=== PATIENT | female | born 1960 | race Caucasian/White ===

== ENCOUNTER 2016-12-12 20:42 | Emergency (ER) | payer MEDICAID ==
--- NOTE | 2016-12-12 21:05 | EDPHY ---
H & P Source: Patient, Police Exam Limitations: Clinical condition - Medical/Surgical History Hx Asthma: No Hx Chronic Respiratory Disease: No Hx Diabetes: No Hx Cardiac Disease: No Hx Renal Disease: No Hx Cirrhosis: No Hx Alcoholism: No Hx HIV/AIDS: No Hx Splenectomy or Spleen Trauma: No Other PMH: DENIES - Family History Significant Family History: No pertinent family hx - Social History Smoking Status: Current every day smoker Alcohol Use: Sober Drug Use: None Time Seen by Provider: 12/12/16 20:48 HPI/ROS: CHIEF COMPLAINT: Suicidal ideation HISTORY OF PRESENT ILLNESS: The patient is a 56-year-old female who denies having any significant past medical history who is brought in by [facility]'s department for suicidal ideations. She states that 1 of her sons tried to commit suicide by eating rat poison a few days ago. He did this because the other son had been threatening to commit suicide. The other son is a meth addict. She states that today she sent out several messages stating that she was going to kill herself and that it was going to look like her son had killed her. She tells me that she did this to manipulate her son's out of killing themselves. found her sitting by a saleh on a stump stating that she wanted to sit there until she . She denies any attempt at self-harm. 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 She denies any recent drug or alcohol use. She tells me that she has not slept in 3 days because of stress. REVIEW OF SYSTEMS: Constitutional: denies: chills, fever, recent illness, recent injury EENTM: denies: blurred vision, double vision, nose congestion Respiratory: denies: cough, shortness of breath Cardiac: denies: chest pain, irregular heart rate, lightheadedness, palpitations Gastrointestinal/Abdominal: denies: abdominal pain, diarrhea, nausea, vomiting, blood streaked stools Genitourinary: denies: dysuria, frequency, hematuria, pain Musculoskeletal: denies: joint pain, muscle pain Skin: denies: lesions, rash, jaundice, bruising Neurological: denies: headache, numbness, paresthesia, tingling, dizziness, weakness Hematologic/Lymphatic: denies: blood clots, easy bleeding, easy bruising Immunologic/allergic: denies: HIV/AIDS, transplant EXAM: GENERAL: Well-appearing, well-nourished and in no acute distress. HEAD: Atraumatic, normocephalic. EYES: Pupils equal round and reactive to light, extraocular movements intact, sclera anicteric, conjunctiva are normal. ENT: TMs normal, nares patent, oropharynx clear without exudates. Moist mucous membranes. NECK: Normal range of motion, supple without lymphadenopathy or JVD. LUNGS: Breath sounds clear to auscultation bilaterally and equal. No wheezes rales or rhonchi. HEART: Regular rate and rhythm without murmurs, rubs or gallops. ABDOMEN: Soft, nontender, normoactive bowel sounds. No guarding, no rebound. No masses appreciated. BACK: No CVA tenderness, no spinal tenderness, step-offs or deformities EXTREMITIES: Normal range of motion, no pitting or edema. No clubbing or cyanosis. NEUROLOGICAL: Cranial nerves II through XII grossly intact. Normal speech, normal gait. 5/5 strength, normal movement in all extremities, normal sensation PSYCH: Able to answer questions appropriately. Slightly paranoid SKIN: Warm, dry, normal turgor, no visible rashes or lesions. (Osei Aguilar) Constitutional: Initial Vital Signs Temperature (C) 36.7 C 12/12/16 20:58 Heart Rate 72 12/12/16 20:58 Respiratory Rate 18 12/12/16 20:58 Blood Pressure 135/88 H 12/12/16 20:58 O2 Sat (%) 98 12/12/16 20:58 O2 Delivery Mode Room Air Allergies/Adverse Reactions: acetaminophen [From Percocet] Allergy (Verified 08/13/15 16:26) oxycodone HCl [From Percocet] Allergy (Verified 08/13/15 16:26) Home Medications: Medication Instructions Recorded Clonazepam 12/12/16 Medical Decision Making ED Course/Re-evaluation: 0426AM Patient evaluated by Brent WALKER, patient had full mental health evaluation and consultation with the on-call psychiatry they feel this patient is not a threat to herself patient denies being suicidal they feel comfortable allowing her to go home. I did go and meet and evaluate her she has, cooperative she denies want hurt herself or anybody else. Contracts for safety she has follow-up plans in place. I will allow her to be discharged. She does understand if she has any further symptoms of feeling like she was to harm herself or anybody else should immediately return to the emergency room. ( Mario Olguin) 10:15 p.m. the patient is medically cleared. She is awaiting psychiatric evaluation. 11:00 p.m. care transferred to Dr. Mario Olguin. (Osei Aguilar) Differential Diagnosis: Partial list of the Differential diagnosis considered include but were not limited to; depression, anxiety, suicidality, substance abuse and although unlikely based on the history and physical exam, I also considered head injury, infection, assault. (Osei Aguilar) - Data Points Laboratory Results: Laboratory Results 12/12/16 21:24 12/12/16 21:24 Medications Given: Discontinued Medications Ibuprofen (Motrin) 600 mg PO EDNOW ONE Stop: 12/12/16 21:29 Last Admin: 12/12/16 21:48 Dose: 600 mg Departure - Departure Disposition: Home, Routine, Self-Care Clinical Impression: Suicidal ideation Condition: Good Instructions: Depression (ED) Additional Instructions: 1. Please return emergency room immediately if you have thoughts of hurting herself or anybody else. Referrals: Chinedu Garay MD [Primary Care Provider] - As per Instructions
[2016-12-12] MEDS ORDERED: IBUPROFEN 600 MG TAB PO ONE (21:28)
[2016-12-12 21:37] LABS: % IMMATURE GRANULYOCYTES 0.4 % (0.0-1.1); ABSOLUTE IMMATURE GRANULOCYTES 0.03 10^3/uL (0.00-0.10); ADD DIFF? NO; ADD MORPH? NO; ADD SCAN? NO; ATYPICAL LYMPHOCYTE FLAG 0 (0-99); FRAGMENT RBC FLAG 0 (0-99); HEMOGLOBIN 13.8 g/dL (12.6-16.3); LEFT SHIFT FLG 0 (0-99); LIPEMIA HEMOLYSIS FLAG 80 (0-99); MEAN CELL HEMOGLOBIN 29.1 pg (27.9-34.1); MEAN CELL HEMOGLOBIN CONCENTR. 32.9 g/dL (32.4-36.7); MEAN CELL VOLUME 88.6 fL (81.5-99.8); MEAN PLATELET VOLUME 10.1 fL (8.7-11.7); PLATELET CLUMPS FLAG 0 (0-99); PLATELET COUNT 333 10^3/uL (150-400); RED BLOOD CELL COUNT 4.74 10^6/uL (4.18-5.33); RED CELL DISTRIBUTION WIDTH 14.4 % (11.5-15.2)
[2016-12-12 21:50] LABS: ANION GAP 9 mEq/L (8-16); CALCIUM 9.2 mg/dL (8.5-10.4); CARBON DIOXIDE 21 mEq/l (22-31); CHLORIDE 112 mEq/L (97-110); CREATININE 0.7 mg/dL (0.6-1.0); ETHANOL SERUM < 10 mg/dL (0-10); GLOMERULAR FILTRATION RATE > 60; GLUCOSE 92 mg/dL (70-100); SODIUM 142 mEq/L (134-144)
[2016-12-13 01:16] VITALS: RESP 16
[2016-12-13 04:55] VITALS: BP 114/78; PULSE 74; TEMP 98.1; O2SAT 95
== END 2016-12-13 04:54 | disposition home or self-care (01) ==
DX: R45.851 Suicidal ideations (principal); F17.200 Nicotine dependence, unspecified, uncomplicated
CPT/HCPCS: 80305; G0480

== ENCOUNTER 2016-12-15 18:18 | Emergency (ER) | payer MEDICAID ==
[2016-12-15 18:25] VITALS: BP 150/122; PULSE 94; RESP 20; TEMP 98.6; O2SAT 97
--- NOTE | 2016-12-15 18:42 | EDPHY ---
H & P Stated Complaint: wants clonazepam refill Time Seen by Provider: 12/15/16 18:42 HPI/ROS: CHIEF COMPLAINT: Requesting a clonazepam refill HISTORY OF PRESENT ILLNESS: The patient presents to the ED requesting a clonazepam refill. She apparently is in between primary care providers. She has been dealing with a great deal of stress an exacerbation of her PTSD surrounding her son's addiction to methamphetamine. The patient was seen in the emergency department several days ago with situational depression and found not to meet criteria for 72 hour mental health hold. The patient denies suicidal or homicidal ideation currently. She has been under the care of a new therapist sahara Lanza who is in the process of making a referral to a psychiatrist. The patient denies any additional acute medical complaints. REVIEW OF SYSTEMS: A comprehensive 10 point review of systems is otherwise negative aside from elements mentioned in the history of present illness. Source: Patient - Personal History Current Tetanus/Diphtheria Vaccine: Yes Current Tetanus Diphtheria and Acellular Pertussis (TDAP): Yes Tetanus Vaccine Date: < 10 years - Medical/Surgical History Hx Asthma: No Hx Chronic Respiratory Disease: No Hx Diabetes: No Hx Cardiac Disease: No Hx Renal Disease: No Hx Cirrhosis: No Hx Alcoholism: No Hx HIV/AIDS: No Hx Splenectomy or Spleen Trauma: No Other PMH: PTSD - Social History Smoking Status: Current every day smoker - Physical Exam Exam: General Appearance: Alert, mildly anxious Eyes: Pupils equal and round no pallor or injection ENT, Mouth: Mucous membranes moist Respiratory: There are no retractions, lungs are clear to auscultation Cardiovascular: Regular rate and rhythm Gastrointestinal: Abdomen is soft and nontender, no masses, bowel sounds normal Neurological: A&O, normal motor function, normal sensory exam, normal cranial nerves Skin: Warm and dry, no rashes Musculoskeletal: Neck is supple nontender Extremities: symmetrical, full range of motion Psychiatric: Patient is oriented X 3, there is no agitation, denies suicidal or homicidal ideation Constitutional: Initial Vital Signs Temperature (C) 37 C 12/15/16 18:22 Heart Rate 94 12/15/16 18:22 Respiratory Rate 20 12/15/16 18:22 Blood Pressure 150/122 H 12/15/16 18:22 O2 Sat (%) 97 12/15/16 18:22 O2 Delivery Mode Room Air Allergies/Adverse Reactions: acetaminophen [From Percocet] Allergy (Verified 12/15/16 18:21) oxycodone HCl [From Percocet] Allergy (Verified 12/15/16 18:21) Home Medications: Medication Instructions Recorded Clonazepam 12/12/16 Medical Decision Making ED Course/Re-evaluation: The patient will be given a short refill of her clonazepam. She has been informed that either her prior primary care provider or new psychiatrist will need to refill this medication in that we will be unable to refill clonazepam from the emergency department in the future. The patient does contract for safety. She is given the outpatient resources from [facility]. Departure - Departure Disposition: Home, Routine, Self-Care Clinical Impression: PTSD (post-traumatic stress disorder) Condition: Good Instructions: Post Traumatic Stress Disorder (ED) Additional Instructions: 1. You have been given a short refill of clonazepam. We will be unable to refill this medication out of the emergency department in the future. I will need to be prescribed by her primary care provider or a psychiatrist. 2. Please follow-up with the mental health resources provided in the ED today. 3. [facility] does operate a 01/02 psychiatric crisis unit located at [address] [place] [address]. The telephone number for the 24 hour crisis center is [phone]. 4. Please return to the ED if you are feeling suicidal, having thoughts of harming yourself/others or should you feel unsafe or have worsening symptoms. Referrals: Chinedu Garay MD [Primary Care Provider] - As per Instructions
== END 2016-12-15 19:09 | disposition home or self-care (01) ==
DX: Z76.0 Encounter for issue of repeat prescription (principal); F43.10 Post-traumatic stress disorder, unspecified; F17.200 Nicotine dependence, unspecified, uncomplicated

== ENCOUNTER 2017-05-21 18:06 | Emergency (ER) | payer MEDICAID ==
[2017-05-21 18:15] VITALS: BP 156/106; PULSE 86; RESP 18; TEMP 98.4; O2SAT 98
--- NOTE | 2017-05-21 18:31 | EDPHY ---
H & P Stated Complaint: Out of clonazepam x 2 wks;wants tx for withdrawal Time Seen by Provider: 05/21/17 18:20 HPI/ROS: Chief complaint: Clonazepam refill History of present illness: This is a 57-year-old female who presents to the emergency department requesting a clonazepam refill. She states she has been on clonazepam for 10 years. Starting this summer she started to see multiple providers trying to manage her clonazepam and ultimately taper off of it. She states they fought amongst each other and ultimately she started to look for another provider but has not found one. She has been off clonazepam for the last 2 weeks. She has been trying to tolerate the symptoms but she feels like she can no longer tolerate it and would like a refill. She denies other associated signs or symptoms, specifically when asked if she has thoughts of hurting or killing herself her other people she denies this. - Personal History Current Tetanus Diphtheria and Acellular Pertussis (TDAP): Yes Tetanus Vaccine Date: < 10 years - Medical/Surgical History Hx Asthma: No Hx Chronic Respiratory Disease: No Hx Diabetes: No Hx Cardiac Disease: No Hx Renal Disease: No Hx Cirrhosis: No Hx Alcoholism: No Hx HIV/AIDS: No Hx Splenectomy or Spleen Trauma: No Other PMH: PTSD. self diagnosed EpsteinBarre - Social History Smoking Status: Current every day smoker - Physical Exam Exam: General Appearance: Alert and no distress. Eyes: Pupils equal and round no injection. ENT: Oropharynx unremarkable. No hoarseness, no stridor, no drooling, no trismus. Respiratory: Chest is non tender, lungs are clear to auscultation. Cardiac: regular rate and rhythm Musculoskeletal: Neck is supple and non tender. Extremities have full range of motion and are non tender. Skin: No rashes or lesions. Neurological: Alert and oriented x4. Strength and sensation intact and symmetrical. Psychiatric. Patient is agitated. Constitutional: Initial Vital Signs Temperature (C) 36.9 C 05/21/17 18:11 Heart Rate 86 05/21/17 18:11 Respiratory Rate 18 05/21/17 18:11 Blood Pressure 156/106 H 05/21/17 18:11 O2 Sat (%) 98 05/21/17 18:11 Allergies/Adverse Reactions: acetaminophen [From Percocet] Allergy (Verified 05/21/17 18:10) oxycodone HCl [From Percocet] Allergy (Verified 05/21/17 18:10) Home Medications: Medication Instructions Recorded clonazePAM [klonoPIN (*)] 1 mg PO TID PRN #21 tab 12/15/16 Medical Decision Making ED Course/Re-evaluation: Patient seen under the supervision of my secondary supervising physician Dr. Terence Dietrich. Patient presents to the emergency department requesting a refill of clonazepam. She has been off of it for the last 2 weeks. She is anxious, but nontoxic and vital signs are stable. Review of her records show that she had a similar presentation in December. She was told at that time that no further refills will be provided through the emergency department. I have discussed this with her. She got extremely angry and left the room and walked out of the hospital. We were unable to have further discussions or provide discharge instructions. Departure - Departure Disposition: Against Medical Advice Clinical Impression: Benzodiazepine withdrawal Qualifiers: Complication of substance-induced condition: uncomplicated Qualified Code(s): F13.230 - Sedative, hypnotic or anxiolytic dependence with withdrawal, uncomplicated Condition: Good
== END 2017-05-21 18:39 | disposition left against medical advice (07) ==
DX: F13.230 Sedative, hypnotic or anxiolytic dependence with withdrawal, uncomplicated (principal); F17.200 Nicotine dependence, unspecified, uncomplicated

== ENCOUNTER 2017-07-28 16:52 | Emergency (ER) | payer MEDICAID ==
[2017-07-28] MEDS ORDERED: MAGNESIUM CITRATE 300 ML BOTTLE ONE (17:20)
[2017-07-28] MEDS ORDERED: NS 1,000 ML IV ONE ×2 (17:34→19:33)
[2017-07-28] MEDS ORDERED: MAGNESIUM CITRATE 300 ML BOTTLE PO ONE (17:53)
[2017-07-28] MEDS ORDERED: IOPAMIDOL (ISOVUE-300) 100 ML BTL ONE (18:08)
[2017-07-28 18:47] LABS: PLATELET COUNT 333 10^3/uL (150-400)
--- NOTE | 2017-07-28 19:13 | EDPHY ---
H & P Stated Complaint: constipation - Personal History Current Tetanus/Diphtheria Vaccine: Yes Current Tetanus Diphtheria and Acellular Pertussis (TDAP): Yes Tetanus Vaccine Date: < 10 years - Medical/Surgical History Hx Asthma: No Hx Chronic Respiratory Disease: No Hx Diabetes: No Hx Cardiac Disease: No Hx Renal Disease: No Hx Cirrhosis: No Hx Alcoholism: No Hx HIV/AIDS: No Hx Splenectomy or Spleen Trauma: No Other PMH: PTSD. self diagnosed EpsteinBarre. Chronic Constipation - Social History Smoking Status: Current every day smoker Time Seen by Provider: 07/28/17 17:05 HPI/ROS: Chief complaint: Severe constipation History of present illness: This is a 57-year-old female who presents to the emergency department with EMS for evaluation of severe constipation. Patient reports she has a long history of chronic constipation. It waxes and wanes. However over the last few days it has significantly worsened. She can feel a mass in her rectum but she cannot pass it. She describes severe pain. She denies other associated signs or symptoms including no abdominal pain, no nausea or vomiting, no fever, no urinary symptoms. Review of systems: A 10 point review of systems was obtained and other than described above was negative (Chago Garcia) - Physical Exam Exam: General Appearance: Alert, pacing the room, appears extremely uncomfortable Eyes: Pupils equal and round no pallor or injection. ENT, Mouth: Mucous membranes moist. Respiratory: There are no retractions, lungs are clear to auscultation. Cardiovascular: Regular rate and rhythm. Gastrointestinal: Abdomen is soft and non tender, no masses, bowel sounds normal. Neurological: Alert and oriented. Strength and sensation intact and symmetrical. Skin: Warm and dry, no rashes. Musculoskeletal: Neck is supple non tender. Extremities are symmetrical, full range of motion. Psychiatric: Patient is oriented X 3, there is no agitation. (Chago Garcia) Constitutional: Initial Vital Signs Temperature (C) 36.4 C 07/28/17 16:52 Respiratory Rate 26 H 07/28/17 16:52 Blood Pressure 125/97 H 07/28/17 16:52 O2 Sat (%) 104 H 07/28/17 16:52 O2 Delivery Mode Room Air Allergies/Adverse Reactions: acetaminophen [From Percocet] Allergy (Verified 05/21/17 18:10) oxycodone HCl [From Percocet] Allergy (Verified 05/21/17 18:10) Medical Decision Making - Diagnostics Imaging: I viewed and interpreted images myself ED Course/Re-evaluation: Patient is discussed with my secondary supervising physician Dr. Mi Figueroa. Patient presents to the emergency department for severe constipation. She did appear to be impacted. Initially rectal exam is performed, I felt significant impaction with the distal tip of my finger. Despite using lidocaine jelly patient is in extreme discomfort and cannot tolerate this. A plain x-ray is ordered just to confirm the diagnosis, there is concern for obstruction. I have discussed this with the patient. She is adamant that she is not obstructed just severely constipated and impacted as she has a history of this. She does not want further evaluation for possible obstruction. She just wants to be treated for impaction. Soapsuds enema are placed. Patient is given magnesium citrate. It has taken a number of hours but she has had large volume bowel movements and resolution of symptoms. Given severity constipation and potential for further workup blood studies obtained initially. Low bicarbonate noted. Recheck was performed accidentally on I-STAT, concerned for user error, needed to be performed on laboratory, recheck BMP in lab shows improving bicarb. She states she is feeling well. She would like to be discharged home. Home care is discussed. She is asked to follow up with her primary care doctor for recheck. Strict return precautions are given. The patient voiced understanding and agreement with plan. (Chago Garcia) Differential Diagnosis: Included but not limited to constipation, impaction, obstruction (Chago Garcia) Other Provider: The patient was evaluated and managed by the Physician Physical Design Engineer. I discussed the patient's presentation and course with the physician camp assistant and agree with the evaluation. My co-signature indicates that I have reviewed this chart and I agree with the findings and plan of care as documented. I am the secondary supervising physician. (Mi Figueroa) - Data Points Laboratory Results: Laboratory Results 07/28/17 18:34 07/28/17 21:35 Medications Given: Discontinued Medications Sodium Chloride (Ns) 1,000 mls @ 0 mls/hr IV EDNOW ONE; Wide Open PRN Reason: Protocol Stop: 07/28/17 17:35 Last Admin: 07/28/17 17:57 Dose: Not Given Sodium Chloride (Ns) 1,000 mls @ 0 mls/hr IV ONCE ONE PRN Reason: Wide Open Stop: 07/28/17 19:34 Last Admin: 07/28/17 19:34 Dose: 1,000 mls Magnesium Citrate (Magnesium Citrate) 300 ml PO ONCE ONE Stop: 07/28/17 17:54 Last Admin: 07/28/17 17:54 Dose: 150 ml Departure - Departure Disposition: Home, Routine, Self-Care Clinical Impression: Constipation Condition: Good Instructions: Constipation (ED) Additional Instructions: Follow-up with a primary care doctor in the next 1-2 days for recheck I recommend you start a fiber supplement such as Metamucil Use Colace stool softeners If symptoms worsen or new symptoms develop return to the emergency room for recheck Referrals: NONE *PRIMARY CARE P,. [Primary Care Provider] - As per Instructions [facility],. [Clinic] - As per Instructions
[2017-07-28 22:08] VITALS: O2SAT 97
[2017-07-28 22:10] VITALS: BP 121/77; PULSE 87; RESP 18; TEMP 98.6
== END 2017-07-28 22:09 | disposition home or self-care (01) ==
LOC: EDUNIT#
PROC: 3E0337Z Introduction of Electrolytic and Water Balance Substance into Peripheral Vein, Percutaneous Approach (ICD-10-PCS; principal; 2017-07-28)
DX: K59.00 Constipation, unspecified (principal); F17.200 Nicotine dependence, unspecified, uncomplicated
CPT/HCPCS: 82947-QW; Q9967

== ENCOUNTER 2018-06-06 23:32 | Emergency (ER) | payer MEDICAID ==
[2018-06-06 23:38] VITALS: BP 107/82
[2018-06-06] MEDS ORDERED: NS 1,000 ML IV ONE (23:47)
[2018-06-06 23:55] LABS: PLATELET COUNT 381 10^3/uL (150-400)
--- NOTE | 2018-06-07 00:29 | EDPHY ---
H & P Stated Complaint: DIARRHEA AND PAIN X 10 DAYS, THINK SHE HAS ECOLI Time Seen by Provider: 06/06/18 23:40 HPI/ROS: HPI The patient presents with diarrhea and intermittent abdominal pain which has been present for the last 10 days. Patient reports that she was on a diet and eating tarun lettuce for the 5 days preceding her symptoms. She developed watery diarrhea, having numerous episodes a day that has continued and now become somewhat bloody. She has intermittent abdominal pain which is in her lower abdomen and acute occurs in cycles. She had an episode tonight which brought her into the emergency department. She has not had a fever. She has not had any sick contacts. There is currently a [employer] warning for lettuce has there been some cases of E coli. REVIEW OF SYSTEMS 10 systems were reviewed and negative with the exception of the elements mentioned in the history of present illness. PMHx: Reported PTSD Soc Hx: Here with her son PHYSICAL General Appearance: Alert, no distress Eyes: Pupils equal and round no pallor or injection ENT, Mouth: Mucous membranes moist Respiratory: There are no retractions, lungs are clear to auscultation Cardiovascular: Regular rate and rhythm Gastrointestinal: Abdomen is soft and non-tender, no masses, bowel sounds normal Neurological: A&O, moves all extremities Skin: Warm and dry, no rashes Musculoskeletal: Neck is supple non tender Extremities: symmetrical, full range of motion Psychiatric: Patient is oriented X 3, there is no agitation Source: Patient Exam Limitations: No limitations - Personal History Current Tetanus/Diphtheria Vaccine: Yes Tetanus Vaccine Date: < 10 years - Medical/Surgical History Hx Asthma: No Hx Chronic Respiratory Disease: No Hx Diabetes: No Hx Cardiac Disease: No Hx Renal Disease: No Hx Cirrhosis: No Hx Alcoholism: No Hx HIV/AIDS: No Hx Splenectomy or Spleen Trauma: No Other PMH: PTSD. self diagnosed EpsteinBarre. Chronic Constipation. C-SECT X3 - Social History Smoking Status: Current every day smoker Constitutional: Initial Vital Signs Temperature (C) 36.4 C 06/06/18 23:35 Heart Rate 88 06/06/18 23:35 Respiratory Rate 24 H 06/06/18 23:35 Blood Pressure 107/82 H 06/06/18 23:35 O2 Sat (%) 95 06/06/18 23:35 O2 Delivery Mode Room Air Allergies/Adverse Reactions: acetaminophen [From Tylenol-Codeine #3] Allergy (Verified 06/06/18 23:34) codeine [From Tylenol-Codeine #3] Allergy (Verified 06/06/18 23:34) oxycodone [From Percocet] Allergy (Verified 06/06/18 23:34) propoxyphene [From Darvocet-N] Allergy (Verified 06/06/18 23:34) Home Medications: Medication Instructions Recorded NK [No Known Home Meds] 06/06/18 Medical Decision Making Differential Diagnosis: This is a 58-year-old female who presents with 10 days of watery diarrhea which became bloody associated with intermittent lower abdominal pain. On exam, vital signs are normal, she appears well hydrated. Her abdominal exam is benign. Differential diagnosis includes viral gastroenteritis, toxin mediated enterocolitis, bacterial colitis, diverticulitis. In the emergency department, patient received IV fluids and a dose of Toradol for her pain. Labs were checked and demonstrated mild leukocytosis, otherwise normal. The patient urinated on the floor of her room and then provided a small stool sample in an emesis basin which was brown without any bright red blood or dark stool present. She asked to be discharged. I had recommended a CT scan of her abdomen to evaluate for diverticulitis, however she refused. I have advised her to follow up with her primary care doctor. - Data Points Laboratory Results: Laboratory Results 06/06/18 23:45 06/06/18 23:45 06/06/18 06/06/18 23:45 23:45 WBC 12.96 10^3/uL H 10^3/uL (3.80-9.50) RBC 4.75 10^6/uL 10^6/uL (4.18-5.33) Hgb 13.9 g/dL g/dL (12.6-16.3) Hct 41.2 % % (38.0-47.0) MCV 86.7 fL fL (81.5-99.8) MCH 29.3 pg pg (27.9-34.1) MCHC 33.7 g/dL g/dL (32.4-36.7) RDW 13.2 % % (11.5-15.2) Plt Count 381 10^3/uL 10^3/uL (150-400) MPV 9.8 fL fL (8.7-11.7) Neut % (Auto) 73.7 % % (39.3-74.2) Lymph % (Auto) 17.0 % % (15.0-45.0) Creek % (Auto) 6.7 % % (4.5-13.0) Eos % (Auto) 1.7 % % (0.6-7.6) Baso % (Auto) 0.5 % % (0.3-1.7) Nucleat RBC Rel Count 0.0 % % (0.0-0.2) Absolute Neuts (auto) 9.55 10^3/uL H 10^3/uL (1.70-6.50) Absolute Lymphs (auto) 2.20 10^3/uL 10^3/uL (1.00-3.00) Absolute Monos (auto) 0.87 10^3/uL H 10^3/uL (0.30-0.80) Absolute Eos (auto) 0.22 10^3/uL 10^3/uL (0.03-0.40) Absolute Basos (auto) 0.07 10^3/uL 10^3/uL (0.02-0.10) Absolute Nucleated RBC 0.00 10^3/uL 10^3/uL (0-0.01) Immature Gran % 0.4 % % (0.0-1.1) Immature Gran # 0.05 10^3/uL 10^3/uL (0.00-0.10) Sodium 138 mEq/L mEq/L (135-145) Potassium 4.2 mEq/L mEq/L (3.3-5.0) Chloride 107 mEq/L mEq/L (97-110) Carbon Dioxide 17 mEq/l L mEq/l (22-31) Anion Gap 14 mEq/L mEq/L (6-14) BUN 22 mg/dL mg/dL (7-23) Creatinine 0.9 mg/dL mg/dL (0.6-1.0) Estimated GFR > 60 Glucose 97 mg/dL mg/dL (70-100) Calcium 9.9 mg/dL mg/dL (8.5-10.4) Medications Given: Discontinued Medications Sodium Chloride (Ns) 1,000 mls @ 0 mls/hr IV ONCE ONE; Wide Open PRN Reason: Protocol Stop: 06/06/18 23:48 Last Admin: 06/06/18 23:48 Dose: 1,000 mls Ketorolac Tromethamine (Toradol) 15 mg IVP EDNOW ONE Stop: 06/07/18 00:33 Last Admin: 06/07/18 00:35 Dose: 15 mg Departure - Departure Disposition: Home, Routine, Self-Care Clinical Impression: Diarrhea Qualifiers: Diarrhea type: unspecified type Qualified Code(s): R19.7 - Diarrhea, unspecified Abdominal pain Qualifiers: Abdominal location: generalized Qualified Code(s): R10.84 - Generalized abdominal pain Condition: Good Instructions: Dehydration (ED), Acute Diarrhea (ED) Additional Instructions: Please make sure to drink plenty of fluids. You can take Imodium 1 tab after each loose stool. Please return to the ER if your worse in any way. Otherwise follow up with your primary care doctor in 1-2 days. Referrals: Chinedu Garay MD [Primary Care Provider] - As per Instructions
[2018-06-07] MEDS ORDERED: KETOROLAC 15 MG/1 ML SDV IVP ONE (00:32)
== END 2018-06-07 00:50 | disposition home or self-care (01) ==
DX: R19.7 Diarrhea, unspecified (principal); R10.84 Generalized abdominal pain; E86.9 Volume depletion, unspecified
CPT/HCPCS: 96374; J1885